=== PATIENT | male | born 1970 | race Two or more races ===

== ENCOUNTER 2016-10-04 09:32 | Emergency (ER) | payer SELFPAY ==
[~2016-10-04] VITALS: Ht 172.7 cm; Wt 71.5 kg
[2016-10-04 09:33] VITALS: BP 133/79; PULSE 97; RESP 16; TEMP 99.3; O2SAT 97
[2016-10-04] MEDS ORDERED: cefTRIAXone 250 MG VIAL IM ONE (10:00)
[2016-10-04] MEDS ORDERED: metroNIDAZOLE 500 MG TAB PO ONE (10:00)
[2016-10-04] MEDS ORDERED: LIDOCAINE HCL 1% 50 ML VIAL IM ONE (10:00)
[2016-10-04] MEDS ORDERED: AZITHROMYCIN PWD FOR SUSP 1 GM PACKET PO ONE (10:00)
[2016-10-04] MEDS ORDERED: ONDANSETRON ODT 4 MG TAB PO ONE (10:00)
--- NOTE | 2016-10-04 10:03 | PD ---
HPI Chief Complaint: Complaint Time Seen by Provider: 09:56 Travel History International Travel<30 days: No Contact w/Intl Traveler<30days: No Traveled to known affect area: No History of Present Illness HPI 46-year-old man presents to the emergency department complaining of penile discharge and dysuria. Symptoms ongoing for couple days. Sexually active with his girlfriend only. Has a little bit of pain in the left side of the scrotum. No other complaints. History Past Medical History Medical History: Denies Significant Hx Influenza Vaccination: No Past Surgical History Surgical History: No Previous Surgery Social History Alcohol Use: Yes (socially) Tobacco Use: No Allergies-Medications (Allergen,Severity, Reaction): Coded Allergies: No Known Allergies (Unverified , 10/04/16) Reported Meds & Prescriptions Reported Meds & Active Scripts Active No Active Prescriptions or Reported Medications Review of Systems General / Constitutional: No: Fever, Chills Gastrointestinal: No: Nausea, Vomiting Musculoskeletal: No: Myalgias, Arthralgias Skin: No Rash, No Itching Neurologic: No: Weakness, Dizziness Psychiatric: No: Anxiety, Depression Physical Exam Narrative Gen.: Well-appearing 38 year-old woman, no acute distress. : Normal male genitalia. Mucopurulent Discharge from the end of the penis. No rashes or lesions. No significant testicular epididymal tenderness or inflammation. Data Data Last Documented VS Vital Signs Date Time Temp Pulse Resp B/P Pulse Ox O2 Delivery O2 Flow Rate FiO2 10/04/16 09:33 99.3 97 16 133/79 97 Room Air Orders Gc And Chlamydia Pcr (10/04/16 10:00) Urinalysis - C+S If Indicated (10/04/16 10:00) Azithromycin Powd Pack (Zithromax Powd P (10/04/16 10:00) Rocephin 250mg Vial Im X 1 (10/04/16 10:00) Lidocaine 1% Inj (50 Ml) (Xylocaine 1% I (10/04/16 10:00) Metronidazole (Flagyl) (10/04/16 10:00) Ondansetron Odt (Zofran Odt) (10/04/16 10:00) MDM Medical Decision Making Medical Screen Exam Complete: Yes Emergency Medical Condition: Yes Differential Diagnosis Urethritis, UTI, epididymitis, other Narrative Course Medical decision-making new 38-year-old male with dysuria and penile discharge suggestive of STI. Recommend empiric treatment. Diagnosis Primary Impression: Urethritis Additional Instructions: Followup with your primary physician for routine care and followup testing for other sexually transmitted infection such as HIV, hepatitis, syphilis. Any sexual partners you have should be tested and treated as well. You should not have sex until you have no symptoms, and your partners tested and treated as well. Med/Other Pt SpecificInfo: No Change to Meds Scripts No Active Prescriptions or Reported Meds Disposition: 01 DISCHARGE HOME Condition: Warren Calzada MD October 04, 2016 10:03
[2016-10-04 10:41] LABS: BLOOD, URINE MOD (NEG); COMMENT (UR) CULTURE INDICATED; CULTURE IF INDICATED CULTURE INDICATED; GLUCOSE,URINE NEG (NEG); KETONE, URINE NEG (NEG); MUCUS URINE FEW /lpf (OCC); NITRITE,URINE NEG (NEG); URINE COLOR YELLOW (YELLW/STRAW)
[2016-10-04 13:41] LABS: CHLAMYDIA PCR NOT DETECTED (NOT DETECT); NEISSERIA PCR DETECTED (NOT DETECT)
== END 2016-10-04 10:39 | disposition home or self-care (01) ==
LOC: NEPD 09:32
DX: N34.2 Other urethritis (principal); A54.9 Gonococcal infection, unspecified
CPT/HCPCS: 81001; 87077; 87086; 87185; 87491; 87591; 96372; 99283; J0696